=== PATIENT | female | born 1995 | race African-American/Black ===

== ENCOUNTER 2016-12-27 18:20 | Emergency (ER) | payer OTHER ==
[~2016-12-27] VITALS: Ht 167.6 cm; Wt 67.6 kg
[2016-12-27] MEDS ORDERED: ZITHTAB PO (19:52)
[2016-12-27] MEDS ORDERED: CLAR5TAB7 PO (19:52)
[2016-12-27 20:00] VITALS: BP 151/89
== END 2016-12-27 20:00 | disposition home or self-care (01) ==
LOC: M ED 19:39
DX: R42 Dizziness and giddiness (principal)

== ENCOUNTER 2016-12-29 17:15 | Emergency (ER) | payer OTHER ==
[~2016-12-29] VITALS: Ht 167.6 cm; Wt 67.6 kg
[~2016-12-29 17:15] MED LIST: CLAR5TAB7 PO; ZITHTAB PO
[2016-12-29] MEDS ORDERED: NS 1,000 ML IV ONE (17:45)
[2016-12-29] MEDS ORDERED: KETOROLAC 30 MG/ML VIAL (J1885) IV ONE (17:45)
[2016-12-29] MEDS ORDERED: PENICILLIN V POTASSIUM 500 MG TAB PO ONE (19:30)
[2016-12-29] MEDS ORDERED: PENI50TA GT (20:25)
[2016-12-29 20:28] VITALS: BP 134/73
[2016-12-29] MEDS ORDERED: PENI50TA PO (20:44)
== END 2016-12-29 20:47 | disposition home or self-care (01) ==
LOC: M ED 18:05
DX: J03.00 Acute streptococcal tonsillitis, unspecified (principal)
CPT/HCPCS: 87880; 96374; 99283; J1885

== ENCOUNTER 2017-11-26 06:40 | Emergency (ER) | payer OTHER ==
[2017-11-26] MEDS: FLUORESCEIN OPHTH 1 MG STRIP OS (07:15)
[2017-11-26] MEDS: TETRACAINE 0.5% OPHTH SOLN 4ML OS (07:15)
[2017-11-26] MEDS: ACETAMINOPHEN 325 MG TAB PO (08:15)
[2017-11-26] MEDS: ERYTHROMYCIN OPHTH OINT OS (08:15)
== END 2017-11-26 08:34 | disposition home or self-care (01) ==
LOC: M ED 06:40
DX: S05.02XA Injury of conjunctiva and corneal abrasion without foreign body, left eye, initial encounter (principal); X58.XXXA Exposure to other specified factors, initial encounter; Y92.89 Other specified places as the place of occurrence of the external cause
CPT/HCPCS: 99283

== ENCOUNTER 2017-11-30 19:14 | Emergency (ER) | payer OTHER ==
[2017-11-30] MEDS: diazePAM 5 MG TAB PO (20:49)
[2017-11-30] MEDS: KETOROLAC 60 MG/2 ML VIAL (J1885) IM (20:50)
== END 2017-11-30 22:32 | disposition home or self-care (01) ==
LOC: M ED 19:14
DX: M62.830 Muscle spasm of back (principal); V49.59XA Passenger injured in collision with other motor vehicles in traffic accident, initial encounter; Y92.410 Unspecified street and highway as the place of occurrence of the external cause
CPT/HCPCS: J1885

== ENCOUNTER 2018-03-10 09:26 | Emergency (ER) | payer OTHER ==
[2018-03-10] MEDS: NS 1,000 ML IV (10:35)
[2018-03-10] MEDS: ONDANSETRON 4MG/2ML VIAL (J2405) IV (10:35)
[2018-03-10] MEDS: MORPHINE 4 MG/ML 1ML VIAL/SYRINGE (J2270) IV ×2 (10:36→11:21)
[2018-03-10 10:57] LABS: BASO % 0.2 % (0.0-1.0); EOS % 0.2 % (0.0-3.0); HEMATOCRIT 36.2 % (36.0-47.0); HEMOGLOBIN 12.1 g/dl (12.0-15.5); IMMATURE GRANULOCYTE % 0.4 % (0-3.0); LYMPH # 1.1 10^3/uL (1.5-6.5); LYMPH % 23.4 % (24.0-44.0); MEAN CORPUSCULAR HEMOGLOBIN 26.8 pg (27.0-33.0); MEAN CORPUSCULAR HGB CONC 33.4 g/dl (32.0-36.5); MEAN CORPUSCULAR VOLUME 80.1 fl (80.0-96.0); MONO # 0.3 10^3/uL (0.0-0.8); MONO % 6.7 % (0.0-5.0); NEUTROPHILS # 3.3 10^3/uL (1.8-7.7); NEUTROPHILS % 69.1 % (36.0-66.0); PLATELET COUNT, AUTOMATED 164 10^3/uL (150-450); RED BLOOD COUNT 4.52 10^6/uL (4.00-5.40); RED CELL DISTRIBUTION WIDTH 13.7 % (11.5-14.5); WHITE BLOOD COUNT 4.8 10^3/uL (4.0-10.0)
[2018-03-10 11:14] LABS: KETONE, URINE AUTO RFX NEGATIVE (NEGATIVE); NITRITE, URINE AUTO RFX NEGATIVE (NEGATIVE); RBC, URINE AUTO RFX 0 /HPF (0-3); SPECIFIC GRAVITY UR AUTO RFX 1.014 (1.002-1.035); SQUAM EPITHELIAL CELL UR AURFX 4 /HPF (0-6); URIC ACID CRYSTALS RFX SMALL; WBC, URINE AUTO RFX 2 /HPF (0-3)
[2018-03-10 11:17] LABS: ALKALINE PHOSPHATASE 69 U/L (45-117); ALT/SGPT 19 U/L (12-78); ANION GAP 7 MEQ/L (8-16); AST/SGOT 17 U/L (7-37); BILIRUBIN,DIRECT 0.2 MG/DL (0.0-0.2); BILIRUBIN,TOTAL 1.1 MG/DL (0.2-1.0); BLOOD UREA NITROGEN 13 MG/DL (7-18); CALCIUM LEVEL 8.7 MG/DL (8.5-10.1); CARBON DIOXIDE LEVEL 26 MEQ/L (21-32); CHLORIDE LEVEL 106 MEQ/L (98-107); CREATININE FOR GFR 0.78 MG/DL (0.55-1.30); GLOMERULAR FILTRATION RATE > 60.0 (>60); GLUCOSE, FASTING 88 MG/DL (70-100); LIPASE 105 U/L (73-393); SODIUM LEVEL 139 MEQ/L (136-145)
[2018-03-10 11:25] LABS: LEUKOCYTE ESTERASE UR AUTO RFX TRACE (NEGATIVE)
[2018-03-10] MEDS ORDERED: ISOVUE-370 76% 100ML VIAL (Q9967) As Ordered (11:46)
== END 2018-03-10 12:50 | disposition home or self-care (01) ==
LOC: M ED 09:26
DX: N83.01 Follicular cyst of right ovary (principal); D64.9 Anemia, unspecified
CPT/HCPCS: J2270

== ENCOUNTER 2018-04-16 10:12 | Emergency (ER) | payer OTHER ==
[2018-04-16 11:24] LABS: BASO % 0.6 % (0.0-1.0); EOS # 0.1 10^3/uL (0.0-0.50); EOS % 1.8 % (0.0-3.0); HEMATOCRIT 33.2 % (36.0-47.0); HEMOGLOBIN 11.1 g/dl (12.0-15.5); IMMATURE GRANULOCYTE % 0.3 % (0-3.0); LYMPH # 1.4 10^3/uL (1.5-6.5); MEAN CORPUSCULAR HEMOGLOBIN 27.2 pg (27.0-33.0); MEAN CORPUSCULAR HGB CONC 33.4 g/dl (32.0-36.5); MEAN CORPUSCULAR VOLUME 81.4 fl (80.0-96.0); MONO # 0.3 10^3/uL (0.0-0.8); MONO % 8.5 % (0.0-5.0); NEUTROPHILS # 1.7 10^3/uL (1.8-7.7); NEUTROPHILS % 48.8 % (36.0-66.0); PLATELET COUNT, AUTOMATED 188 10^3/uL (150-450); RED BLOOD COUNT 4.08 10^6/uL (4.00-5.40); RED CELL DISTRIBUTION WIDTH 14.3 % (11.5-14.5); WHITE BLOOD COUNT 3.4 10^3/uL (4.0-10.0)
[2018-04-16 11:31] LABS: KETONE, URINE AUTO RFX NEGATIVE (NEGATIVE); LEUKOCYTE ESTERASE UR AUTO RFX NEGATIVE (NEGATIVE); MUCUS, URINE RFX SMALL (NEGATIVE); NITRITE, URINE AUTO RFX NEGATIVE (NEGATIVE); RBC, URINE AUTO RFX 1 /HPF (0-3); SPECIFIC GRAVITY UR AUTO RFX 1.013 (1.002-1.035); SQUAM EPITHELIAL CELL UR AURFX 2 /HPF (0-6); WBC, URINE AUTO RFX 1 /HPF (0-3)
[2018-04-16 11:37] LABS: ANION GAP 5 MEQ/L (8-16); BLOOD UREA NITROGEN 9 MG/DL (7-18); CALCIUM LEVEL 8.6 MG/DL (8.5-10.1); CARBON DIOXIDE LEVEL 29 MEQ/L (21-32); CHLORIDE LEVEL 109 MEQ/L (98-107); CREATININE FOR GFR 0.72 MG/DL (0.55-1.30); GLOMERULAR FILTRATION RATE > 60.0 (>60); GLUCOSE, FASTING 95 MG/DL (70-100); POTASSIUM SERUM 4.1 MEQ/L (3.5-5.1); SODIUM LEVEL 143 MEQ/L (136-145)
[2018-04-16] MEDS ORDERED: KETOROLAC TROMETHAMINE 10 MG TAB PO (11:45)
[2018-04-16] MEDS ORDERED: KETOROLAC 60 MG/2 ML VIAL (J1885) IM (11:45)
[2018-04-16] MEDS: KETOROLAC 30 MG/ML VIAL (J1885) IV (12:02)
[2018-04-16] MEDS ORDERED: ISOVUE-370 76% 100ML VIAL (Q9967) As Ordered (12:51)
[2018-04-16] MEDS: MORPHINE 4 MG/ML 1ML VIAL/SYRINGE (J2270) IV (13:04)
[2018-04-16] MEDS: NS 1,000 ML IV (13:04)
== END 2018-04-16 15:04 | disposition home or self-care (01) ==
LOC: M ED 10:12
DX: I88.9 Nonspecific lymphadenitis, unspecified (principal); N83.01 Follicular cyst of right ovary; Z79.899 Other long term (current) drug therapy
CPT/HCPCS: J2270

== ENCOUNTER 2018-06-24 09:47 | Day surgery (SDC) | payer OTHER ==
[~2018-06-24 09:47] MED LIST changes: -CLAR5TAB7 PO; +LIDOCAINE 1% MDV 20ML VIAL SQ; -ZITHTAB PO
[2018-06-24 10:21] LABS: HEMATOCRIT 35.6 % (36.0-47.0); HEMOGLOBIN 11.8 g/dl (12.0-15.5); MEAN CORPUSCULAR HEMOGLOBIN 27.3 pg (27.0-33.0); MEAN CORPUSCULAR HGB CONC 33.1 g/dl (32.0-36.5); MEAN CORPUSCULAR VOLUME 82.4 fl (80.0-96.0); PLATELET COUNT, AUTOMATED 184 10^3/uL (150-450); RED BLOOD COUNT 4.32 10^6/uL (4.00-5.40); WHITE BLOOD COUNT 2.5 10^3/uL (4.0-10.0)
[2018-06-24] MEDS: LR 1,000 ML IV (10:34)
[2018-06-24 10:46] LABS: ANION GAP 4 MEQ/L (8-16); BLOOD UREA NITROGEN 11 MG/DL (7-18); CALCIUM LEVEL 8.8 MG/DL (8.5-10.1); CARBON DIOXIDE LEVEL 30 MEQ/L (21-32); CHLORIDE LEVEL 106 MEQ/L (98-107); CREATININE FOR GFR 0.77 MG/DL (0.55-1.30); GLOMERULAR FILTRATION RATE > 60.0 (>60); GLUCOSE, FASTING 91 MG/DL (70-100); HCG, SERUM QUANTITATIVE < 1.0 MIU/ML; SODIUM LEVEL 140 MEQ/L (136-145)
[2018-06-24] MEDS ORDERED: ceFAZolin 1GM INJ (J0690 PER 500MG) As Ordered (12:27)
[2018-06-24] MEDS: ACETAMINOPHEN 650 MG SUPP As Ordered (13:07)
[2018-06-24] MEDS ORDERED: ROCURONIUM BROMIDE 50 MG/5 ML VIAL As Ordered ×2 (13:09)
[2018-06-24] MEDS ORDERED: LIDOCAINE 2% INJ 100 MG/5 ML SDV (FOR ANES.) As Ordered ×2 (13:09)
[2018-06-24] MEDS ORDERED: PROPOFOL 200 MG/20 ML VIAL As Ordered (13:09)
[2018-06-24] MEDS ORDERED: KETOROLAC 60 MG/2 ML VIAL (J1885) As Ordered (13:10)
[2018-06-24] MEDS ORDERED: dexameTHASONE 4 MG/ML 1ML VIAL (J1100) As Ordered ×2 (13:10)
[2018-06-24] MEDS ORDERED: MIDAZOLAM INJ 2 MG/2 ML VIAL (J2250) As Ordered (13:10)
[2018-06-24] MEDS ORDERED: fentaNYL 250 MCG/5 ML INJECTION (J3010) As Ordered (13:10)
[2018-06-24] MEDS ORDERED: ONDANSETRON 4MG/2ML VIAL (J2405) As Ordered (13:10)
[2018-06-24] MEDS: ACETAMINOPHEN 650 MG SUPP PR (13:45)
[2018-06-24] MEDS ORDERED: HYDROmorphone HCL 2 MG/ML 1ML VIAL (J1170) As Ordered (13:46)
[2018-06-24] MEDS: ceFAZolin SOD 1 GM in D5W MINI-BAG PLUS 50 ML IV (13:50)
[2018-06-24] MEDS: BUPIVACAINE HCL 0.5% 10 ML VIAL As Ordered (13:52)
[2018-06-24] MEDS ORDERED: SUGAMMADEX SODIUM 500 MG/5 ML VIAL (BRIDION) As Ordered (13:59)
[2018-06-24] MEDS ORDERED: fentaNYL 100 MCG/2 ML INJECTION (J3010) IV (15:00)
[2018-06-24] MEDS ORDERED: LR 1,000 ML IV (15:00)
[2018-06-24] MEDS ORDERED: METOCLOPRAMIDE INJ 10MG/2ML VIAL (J2765) IV (15:00)
[2018-06-24] MEDS ORDERED: MEPERIDINE INJ 25 MG/ML VIAL (J2175) IV (15:00)
[2018-06-24] MEDS ORDERED: KETOROLAC 30 MG/ML VIAL (J1885) IV (15:00)
[2018-06-24] MEDS: ONDANSETRON 4MG/2ML VIAL (J2405) IV (15:04)
[2018-06-24] MEDS: PERCOCET 5MG/325MG TAB PO ×2 (15:04→15:38)
== END 2018-06-24 17:10 | disposition home or self-care (01) ==
LOC: M SDC 09:47
DX: N80.3 Endometriosis of pelvic peritoneum (principal); N83.10 Corpus luteum cyst of ovary, unspecified side; D57.3 Sickle-cell trait; D50.9 Iron deficiency anemia, unspecified; R29.898 Other symptoms and signs involving the musculoskeletal system
CPT/HCPCS: 49320

== ENCOUNTER 2018-09-01 17:50 | Emergency (ER) | payer OTHER ==
[~2018-09-01] VITALS: Ht 167.6 cm; Wt 72.7 kg
[~2018-09-01 17:50] MED LIST changes: +CETI10TA PO; +CLAR5TAB7 PO; +CYCL10TA PO; +ERYTOIN8 OS; +FERR1TAB8 PO; +FOLI800C PO; +IRON INFUSION IV; -LIDOCAINE 1% MDV 20ML VIAL SQ; +MOXI0.5S OP; +NAPR-50 PO; +NORCOTAB PO; +PENI500T GT; +PENI500T PO; +VALI5TAB PO; +ZITHTAB PO; +iron tab
[2018-09-01] MEDS ORDERED: MIRE1IUD IU (17:59)
[2018-09-01] MEDS ORDERED: KETOROLAC 30 MG/ML VIAL (J1885) IV ONE (19:00)
[2018-09-01 19:10] LABS: BASO % 0.6 % (0.0-1.0); EOS % 0.6 % (0.0-3.0); HEMATOCRIT 38.6 % (36.0-47.0); HEMOGLOBIN 13.4 g/dl (12.0-15.5); LYMPH # 1.5 10^3/uL (1.5-6.5); LYMPH % 44.6 % (24.0-44.0); MEAN CORPUSCULAR HEMOGLOBIN 28.8 pg (27.0-33.0); MEAN CORPUSCULAR HGB CONC 34.7 g/dl (32.0-36.5); MEAN CORPUSCULAR VOLUME 82.8 fl (80.0-96.0); MONO # 0.3 10^3/uL (0.0-0.8); MONO % 8.4 % (0.0-5.0); NEUTROPHILS # 1.5 10^3/uL (1.8-7.7); NEUTROPHILS % 45.5 % (36.0-66.0); PLATELET COUNT, AUTOMATED 153 10^3/uL (150-450); RED BLOOD COUNT 4.66 10^6/uL (4.00-5.40); WHITE BLOOD COUNT 3.3 10^3/uL (4.0-10.0)
[2018-09-01 19:39] LABS: ALBUMIN 4.2 GM/DL (3.2-5.2); ALT/SGPT 16 U/L (12-78); BILIRUBIN,DIRECT 0.3 MG/DL (0.0-0.2); BILIRUBIN,TOTAL 1.3 MG/DL (0.2-1.0); BLOOD UREA NITROGEN 12 MG/DL (7-18); CALCIUM LEVEL 8.8 MG/DL (8.5-10.1); CARBON DIOXIDE LEVEL 25 MEQ/L (21-32); CHLORIDE LEVEL 106 MEQ/L (98-107); CREATININE FOR GFR 0.65 MG/DL (0.55-1.30); GLOMERULAR FILTRATION RATE > 60.0 (>60); GLUCOSE, FASTING 79 MG/DL (70-100); LIPASE 107 U/L (73-393); POTASSIUM SERUM 4.2 MEQ/L (3.5-5.1); SODIUM LEVEL 139 MEQ/L (136-145); TOTAL PROTEIN 7.3 GM/DL (6.4-8.2)
--- NOTE | 2018-09-01 19:59 | REPVR ---
EXAM: US Pelvis Complete, Transabdominal and US Pelvis, Transvaginal EXAM DATE/TIME: 09/01/2018 7:37 PM CLINICAL HISTORY: 22 years old, female; Pain; Pelvic pain; Additional info: Rlq pain/irreg menses TECHNIQUE: Real-time transabdominal and transvaginal pelvic ultrasound (complete) with image documentation. Transvaginal imaging was used for better evaluation of the endometrium and adnexa. COMPARISON: US PELVIC NON-OB COMPLETE 04/16/2018 11:43 AM FINDINGS: Uterus/cervix: Uterus measures 7.4 x 3.3 x 5.4 cm. Endometrial echocomplex measures 4.2 mm. IUD located centrally within the endometrial cavity. Right adnexa: Right ovary measures 2.5 x 1.5 x 2.4 cm. RI 0.65 Left adnexa: Left ovary measures 3.1 x 2.1 x 2.5 cm. RI 0.55 Free fluid: Trace fluid in the cul-de-sac. Bladder: Bladder unremarkable IMPRESSION: Normal study. IUD located centrally within the endometrial cavity. Electronically signed by: Vincent Mayorga On 09/01/2018 19:59:35 PM
[2018-09-01] MEDS ORDERED: ISOVUE-370 76% 100ML VIAL (Q9967) As Ordered ONE (20:33)
--- NOTE | 2018-09-01 20:56 | REPVR ---
EXAM: CT Abdomen and Pelvis With Contrast EXAM DATE/TIME: 09/01/2018 8:34 PM CLINICAL HISTORY: 22 years old, female; Pain; Abdominal pain; Localized; Right lower quadrant (rlq); Additional info: Rlq pain TECHNIQUE: Axial computed tomography images of the abdomen and pelvis with intravenous contrast. All CT scans at this facility use at least one of these dose optimization techniques: automated exposure control; mA and/or kV adjustment per patient size (includes targeted exams where dose is matched to clinical indication); or iterative reconstruction. Coronal and sagittal reformatted images were created and reviewed. CONTRAST: 100 ml of ISOVUE 370 administered intravenously. COMPARISON: CT ABD/PEL W/IV CONTRAST ONLY 04/16/2018 12:48 PM FINDINGS: Lower thorax: No acute findings. ABDOMEN: Liver: 5 mm cyst right lobe of the liver. Liver otherwise unremarkable. Gallbladder and bile ducts: Normal. No calcified stones. No ductal dilation. Pancreas: Normal. No ductal dilation. Spleen: Normal. No splenomegaly. Adrenals: Normal. No mass. Kidneys and ureters: Normal. No hydronephrosis. Stomach and bowel: There is increased feces throughout the colon consistent with constipation. Appendix: Normal appendix. PELVIS: Bladder: Unremarkable as visualized. Reproductive: Dextro tilted uterus. IUD located centrally within the endometrial cavity. ABDOMEN and PELVIS: Intraperitoneal space: Minimal free fluid in the cul-de-sac likely physiologic. Clinical correlation to exclude other etiologies including endometriosis or pelvic inflammatory disease suggested. Bones/joints: No acute fracture. No dislocation. Soft tissues: Unremarkable. Vasculature: Normal. No abdominal aortic aneurysm. Lymph nodes: Normal. No enlarged lymph nodes. IMPRESSION: 1. Normal appendix. 2. Minimal free fluid in the cul-de-sac likely physiologic. Clinical correlation to exclude other etiologies including endometriosis or pelvic inflammatory disease suggested. 3. There is increased feces throughout the colon consistent with constipation. COMMENT: Consistent with the [employer]'s Incidental Findings Committee Report (J Am Mayela Radiol 2010): Unless the patient's specific circumstances suggest otherwise, any liver lesion 0.5 cm or less, any cystic kidney lesion less than 1.0 cm, and/or any adrenal lesion 1.0 cm or less not otherwise characterized in this report as possessing suspicious or indeterminate imaging features is/are highly likely to be benign and do not require follow-up imaging or biopsy. Electronically signed by: Vincent Mayorga On 09/01/2018 20:56:02 PM
[2018-09-01 21:18] VITALS: BP 132/83
== END 2018-09-01 21:32 | disposition home or self-care (01) ==
LOC: M ED 17:50
DX: K59.00 Constipation, unspecified (principal); N80.9 Endometriosis, unspecified
CPT/HCPCS: 74177; 76830; 76856; 80048; 80076; 81001; 81025; 83690; 85025; 93976; 99284; J1885; Q9967